=== PATIENT | female | born 1970 | race Two or more races ===

== ENCOUNTER 2016-10-25 20:37 | Emergency (ER) | payer MEDICARE, OTHER ==
[2016-10-25 20:38] VITALS: BP 131/95; PULSE 133; RESP 22; TEMP 97.6; O2SAT 92
[2016-10-25] MEDS ORDERED: methylPREDNISolone SOD SUCC 125 MG/2 ML VIAL IVP ONE (21:00)
[2016-10-25] MEDS ORDERED: LORazepam 2 MG/ML VIAL IV PUSH ONE (21:00)
--- NOTE | 2016-10-25 21:00 | PD ---
HPI Chief Complaint: shortness of breath Time Seen by Provider: 20:47 Travel History International Travel<30 days: No Contact w/Intl Traveler<30days: No Traveled to known affect area: No History of Present Illness HPI 46-year-old female complains of coughing, wheezing and shortness of breath. Patient states that the symptoms started a week ago. Patient has history of COPD and CHF. Patient has history of pulmonary problems that required right thorax surgery in the past. Patient has nebulizer machine at home and on home O2. Patient states the cough is intermittent and dry cough for the past week. Patient denies any fever chills. Patient denies any chest pain. Patient denies abdominal pain. Patient denies any nausea vomiting diarrhea. Patient has been taking prednisone 80 mg daily [facility] Social History Tobacco Use: No Allergies-Medications (Allergen,Severity, Reaction): Coded Allergies: No Known Allergies (Unverified , 10/25/16) Reported Meds & Prescriptions Reported Meds & Active Scripts Active Potassium Chloride ER (Potassium Chloride) 10 Meq Cap 10 Meq PO BID Review of Systems General / Constitutional: No: Fever Eyes: No: Visual changes HENT: No: Headaches Cardiovascular: No: Chest Pain or Discomfort Respiratory: Positive: Cough, Shortness of Breath, Wheezing Gastrointestinal: No: Abdominal Pain Genitourinary: No: Dysuria Musculoskeletal: No: Pain Skin: No Rash Neurologic: No: Weakness Psychiatric: No: Depression Endocrine: No: Polydipsia Hematologic/Lymphatic: No: Easy Bruising Physical Exam Narrative GENERAL: Well-nourished, well-developed patient. SKIN: Warm and dry. HEAD: Normocephalic. EYES: No scleral icterus. No injection or drainage. NECK: Supple, trachea midline. No JVD or lymphadenopathy. CARDIOVASCULAR: Regular rate and rhythm without murmurs, gallops, or rubs. RESPIRATORY: Patient has moderate expiratory wheezes bilaterally. No rhonchi. GASTROINTESTINAL: Abdomen soft, non-tender, nondistended. MUSCULOSKELETAL: No cyanosis, or edema. BACK: Nontender without obvious deformity. No CVA tenderness. Neurologic exam normal. Data Data Last Documented VS Vital Signs Date Time Temp Pulse Resp B/P Pulse Ox O2 Delivery O2 Flow Rate FiO2 10/25/16 21:21 125 20 97 Nasal Cannula 2 10/25/16 21:16 126/93 10/25/16 20:38 97.6 Orders Complete Blood Count With Diff (10/25/16 20:55) Comprehensive Metabolic Panel (10/25/16 20:55) B-Type Natriuretic Peptide (10/25/16 20:55) Iv Access Insert/Monitor (10/25/16 20:55) Electrocardiogram (10/25/16 20:55) Ecg Monitoring (10/25/16 20:55) Oximetry (10/25/16 20:55) Chest, Single Ap (10/25/16 20:55) Methylprednisolone So Succ Inj (Solumedr (10/25/16 21:00) Albuterol-Ipratropium Neb (Duoneb Neb) (10/25/16 21:00) Lorazepam Inj (Ativan Inj) (10/25/16 21:00) Potassium Chlor 20 Meq Premix (Kcl 20 Me (10/25/16 23:00) Potassium Chloride (Kcl) (10/25/16 23:00) Labs Laboratory Tests Test 10/25/16 22:10 Sodium Level 134 MEQ/L Potassium Level 2.9 MEQ/L Chloride Level 92 MEQ/L Carbon Dioxide Level 26.6 MEQ/L Anion Gap 15 MEQ/L Blood Urea Nitrogen 22 MG/DL Creatinine 1.01 MG/DL Estimat Glomerular Filtration 60 ML/MIN Rate Random Glucose 116 MG/DL Calcium Level 9.9 MG/DL Total Bilirubin 0.8 MG/DL Aspartate Amino Transf 13 U/L (AST/SGOT) Alanine Aminotransferase 24 U/L (ALT/SGPT) Alkaline Phosphatase 93 U/L B-Type Natriuretic Peptide 9 PG/ML Total Protein 8.9 GM/DL Albumin 4.8 GM/DL White Blood Count 21.7 TH/MM3 Red Blood Count 6.35 MIL/MM3 Hemoglobin 16.9 GM/DL Hematocrit 48.7 % Mean Corpuscular Volume 76.7 FL Mean Corpuscular Hemoglobin 26.5 PG Mean Corpuscular Hemoglobin 34.6 % Concent Red Cell Distribution Width 13.1 % Platelet Count 390 TH/MM3 Mean Platelet Volume 8.2 FL Neutrophils (%) (Auto) 54.2 % Lymphocytes (%) (Auto) 36.2 % Monocytes (%) (Auto) 8.0 % Eosinophils (%) (Auto) 1.1 % Basophils (%) (Auto) 0.5 % Neutrophils # (Auto) 11.7 TH/MM3 Lymphocytes # (Auto) 7.8 TH/MM3 Monocytes # (Auto) 1.7 TH/MM3 Eosinophils # (Auto) 0.2 TH/MM3 Basophils # (Auto) 0.1 TH/MM3 CBC Comment AUTO DIFF Differential Total Cells 100 Counted Neutrophils % (Manual) 42 % Lymphocytes % 33 % Monocytes % 1 % Eosinophils % 3 % Neutrophils # (Manual) 9.1 TH/MM3 Differential Comment FINAL DIFF MANUAL Atypical Lymphocytes 21 % Platelet Estimate NORMAL Platelet Morphology Comment NORMAL Hematology Comments [facility] Medical Decision Making Medical Screen Exam Complete: Yes Emergency Medical Condition: Yes Interpretation(s) Last Impressions Chest X-Ray 10/25/162054 Signed Impressions: Service Date/Time: Tuesday, October 25, 2016 21:16 - CONCLUSION: No acute disease. Harley Payne MD 10:59 PM. CBC WBC 21.7. Hemoglobin 16.9. Hematocrit 40.7. Normal differential. Potassium 2.9. Sodium 134. Chloride 92. BUN 22. Creatinine 1.01. Differential Diagnosis Differential diagnosis including acute exacerbation COPD, acute exacerbation CHF , bronchitis, pneumonia, PE, pneumothorax. Narrative Course 46-year-old female with coughing, wheezing, shortness of breath. History of COPD and CHF. Albuterol Atrovent unit dose treatment 3. Solu-Medrol 125 mg IV. KCl 40 mEq by mouth given. KCl 20 mEq IV given. Leukocytosis from the prednisone. Diagnosis Primary Impression: COPD with acute exacerbation Additional Impression: Hypokalemia Patient Instructions: General Instructions Additional Instructions: Albuterol treatment as directed. Follow-up with personal physician. Return if worse. Potassium as directed. Follow with personal physician potassium level checked. Med/Other Pt SpecificInfo: Prescription(s) given Scripts Potassium Chloride ER 10 Meq Cap10 Meq PO BID #14 CAP Ref 0 Prov:Lele Hernandez MD 10/26/16 Disposition: 01 DISCHARGE HOME Condition: Stable Lele Hernandez MD Oct 25, 2016 21:00
[2016-10-25] MEDS: RESP: ALBUTEROL 2.5 MG/IPRATROPIUM 0.5 MG NEB (SCH) INH ×3 (21:07→21:12)
[2016-10-25 21:16] VITALS: BP 126/93; PULSE 130; RESP 18; O2SAT 92
[2016-10-25 21:21] VITALS: PULSE 125; RESP 20; O2SAT 97
--- NOTE | 2016-10-25 21:34 | RADRPT ---
EXAM DATE/TIME: 10/25/2016 21:16 [facility] COMPARISON: No previous studies available for comparison. INDICATIONS : Shortness of breath. MEDICAL HISTORY : None. SURGICAL HISTORY : None. ENCOUNTER: Initial ACUITY: 1 day PAIN SCORE: 0/10 LOCATION: Bilateral chest FINDINGS: A single view of the chest demonstrates the lungs to be symmetrically aerated without evidence of mas s, infiltrate or effusion. The cardiomediastinal contours are unremarkable. Osseous structures are intact. CONCLUSION: No acute disease. Harley Payne MD on October 25, 2016 at 21:32 Board Certified Radiologist. This report was verified electronically.
[2016-10-25 22:39] LABS: AUTOMATED NEUTROPHIL # 11.7 TH/MM3 (1.8-7.7); BASOPHIL # 0.1 TH/MM3 (0-0.2); BASOPHIL % 0.5 % (0.0-2.0); EOSINOPHIL # 0.2 TH/MM3 (0-0.4); EOSINOPHIL % 1.1 % (0.0-4.0); HEMATOCRIT 48.7 % (35.0-46.0); HEMO FLAGS AUTO DIFF; LYMPH % 36.2 % (9.0-44.0); LYMPHOCYTE # 7.8 TH/MM3 (1.0-4.8); MEAN CELL VOLUME 76.7 FL (80.0-100.0); MEAN CORPUSCULAR HEMOGLOBIN 26.5 PG (27.0-34.0); MEAN CORPUSCULAR HGB CONC 34.6 % (32.0-36.0); NEUT % 54.2 % (16.0-70.0); PLATELET COUNT 390 TH/MM3 (150-450); RED BLOOD COUNT 6.35 MIL/MM3 (4.00-5.30); RED CELL DISTRIBUTION WIDTH 13.1 % (11.6-17.2); WHITE BLOOD COUNT 21.7 TH/MM3 (4.0-11.0)
[2016-10-25 22:50] LABS: ALKALINE PHOSPHATASE 93 U/L (45-117); ALT (GPT) 24 U/L (10-53); ANION GAP 15 MEQ/L (5-15); AST (GOT) 13 U/L (15-37); BICARBONATE 26.6 MEQ/L (21.0-32.0); CHLORIDE 92 MEQ/L (98-107); GLOMERULAR FILTRATION RATE 60 ML/MIN (>89); SODIUM (NA) 134 MEQ/L (136-145); TOTAL BILIRUBIN ADULT 0.8 MG/DL (0.2-1.0)
[2016-10-25 22:52] LABS: BLOOD UREA NITROGEN 22 MG/DL (7-18)
[2016-10-25 22:57] LABS: POTASSIUM 2.9 MEQ/L (3.5-5.1)
[2016-10-25] MEDS ORDERED: POTASSIUM CHLOR 20 MEQ PREMIX 100 ML IV ONE (23:00)
[2016-10-25] MEDS ORDERED: POTASSIUM CHLORIDE 20 MEQ CONTROLLED RELEASE TAB PO ONE (23:00)
[2016-10-26] MEDS ORDERED: POTA10CA PO (00:01)
[2016-10-26 00:31] LABS: ATYPICAL LYMPHOCYTES 21 % (0-0); EOSINOPHILS 3 % (0-4); NEUTROPHIL # MANUAL DIFF 9.1 TH/MM3 (1.8-7.7); POLYS (SEG NEUTROPHILS) 42 % (16-70); WBC DIFF SAMPLE 100
[2016-10-26 00:32] LABS: PLATELET ESTIMATE SMEAR NORMAL (NORMAL); PLATELET MORPHOLOGY NORMAL (NORMAL); SCAN/DIFF FINAL DIFF MANUAL
--- NOTE | 2016-10-26 12:34 | EKG ---
Date Performed: 10/25/2016 Time Performed: 21:55:29 PTAGE: 46 years EKG: SINUS TACHYCARDIA MODERATE ST DEPRESSION ABNORMAL ECG NO PREVIOUS TRACING DOCTOR: Roberto Carlos Donohue Interpretating Date/Time 10/26/2016 12:30:36
== END 2016-10-26 00:26 | disposition home or self-care (01) ==
LOC: NEPC 20:37
DX: J44.1 Chronic obstructive pulmonary disease with (acute) exacerbation (principal); R94.31 Abnormal electrocardiogram [ECG] [EKG]
CPT/HCPCS: 71010; 80053; 83880; 85007; 85027; 93005; 94640; 94664; 96374; 96375; 99285; J2060; J2930

== ENCOUNTER 2017-11-15 16:15 | Observation (INO) | payer MEDICARE ==
[~2017-11-15 16:15] MED LIST: POTA10CA PO
[2017-11-15 16:29] VITALS: BP 144/67; PULSE 89; RESP 16; TEMP 97.9; O2SAT 98
--- NOTE | 2017-11-15 17:06 | RADRPT ---
EXAM DATE/TIME: 11/15/2017 16:57 [facility] COMPARISON: CHEST SINGLE AP, October 25, 2016, 21:16. INDICATIONS : Shortness of breath. MEDICAL HISTORY : Chronic obstructive pulmonary disease. SURGICAL HISTORY : None. ENCOUNTER: Initial ACUITY: 1 day PAIN SCORE: 0/10 LOCATION: Bilateral chest FINDINGS: PA and lateral views of the chest demonstrate the lungs to be symmetrically aerated without evidence of mass, infiltrate or effusion. The cardiomediastinal contours are unremarkable. Osseous structure s are intact. CONCLUSION: 1. No acute cardiopulmonary findings. Stable compared to prior dated 10/25/16. Dwaine Hubbard MD on November 15, 2017 at 17:03 Board Certified Radiologist. This report was verified electronically.
[2017-11-15 18:09] LABS: AUTOMATED NEUTROPHIL # 7.9 TH/MM3 (1.8-7.7); BASOPHIL # 0.1 TH/MM3 (0-0.2); BASOPHIL % 0.9 % (0.0-2.0); EOSINOPHIL # 1.1 TH/MM3 (0-0.4); EOSINOPHIL % 7.8 % (0.0-4.0); HEMATOCRIT 41.6 % (35.0-46.0); HEMOGLOBIN 13.6 GM/DL (11.6-15.3); LYMPH % 28.6 % (9.0-44.0); LYMPHOCYTE # 3.9 TH/MM3 (1.0-4.8); MEAN CORPUSCULAR HEMOGLOBIN 26.5 PG (27.0-34.0); MEAN CORPUSCULAR HGB CONC 32.7 % (32.0-36.0); MEAN PLATELET VOLUME 8.1 FL (7.0-11.0); MONO % 5.5 % (0.0-8.0); MONOCYTE # 0.8 TH/MM3 (0-0.9); NEUT % 57.2 % (16.0-70.0); PLATELET COUNT 306 TH/MM3 (150-450); RED BLOOD COUNT 5.14 MIL/MM3 (4.00-5.30); RED CELL DISTRIBUTION WIDTH 13.5 % (11.6-17.2); WHITE BLOOD COUNT 13.8 TH/MM3 (4.0-11.0)
--- NOTE | 2017-11-15 18:14 | PD ---
HPI Chief Complaint: Respiratory Symptoms Time Seen by Provider: 17:48 Travel History International Travel<30 days: No Contact w/Intl Traveler<30days: No Traveled to known affect area: No History of Present Illness HPI This patient complains of shortness of breath. She has chronic lung disease. She is on oxygen and nebulizers at home. She has COPD and pulmonary fibrosis per her report. She comes in short of breath and wheezing. She did not take any steroid today. Symptom severity is moderately severe. No alleviating factors. No exacerbating factors. Denies chest pain or fever PFSH Past Medical History Congestive Heart Failure: Yes Diminished Hearing: No Respiratory: Yes Ectopic : Yes Past Surgical History Other Surgery: Yes (OPEN HEART SX AT 21) Social History Alcohol Use: No Tobacco Use: No Substance Use: No Allergies-Medications (Allergen,Severity, Reaction): Coded Allergies: No Known Allergies (Unverified , 10/25/16) Reported Meds & Prescriptions Reported Meds & Active Scripts Active Potassium Chloride ER (Potassium Chloride) 10 Meq Cap 10 Meq PO BID Review of Systems General / Constitutional: No: Fever Eyes: No: Visual changes HENT: No: Headaches Cardiovascular: No: Chest Pain or Discomfort Respiratory: Positive: Shortness of Breath, Wheezing Gastrointestinal: No: Abdominal Pain Genitourinary: No: Dysuria Musculoskeletal: No: Pain Skin: No Rash Neurologic: No: Weakness Psychiatric: No: Depression Endocrine: No: Polydipsia Hematologic/Lymphatic: No: Easy Bruising Physical Exam Narrative GENERAL: Well-nourished, well-developed patient with wheezing and dyspnea . SKIN: Focused skin assessment reveals no rash and nodules. Skin is Warm and dry. HEAD: Atraumatic. Normocephalic. EYES: Pupils equal and round. No scleral icterus. No injection or drainage. ENT: No nasal bleeding or discharge. Mucous membranes pink and moist. NECK: Trachea midline. No JVD. CARDIOVASCULAR: Regular rate and rhythm. No murmur appreciated. RESPIRATORY: No accessory muscle use. Diffuse expiratory wheezing. Breath sounds equal bilaterally. GASTROINTESTINAL: Abdomen soft, non-tender, nondistended. Hepatic and splenic margins not palpable. MUSCULOSKELETAL: No obvious deformities. No clubbing. No cyanosis. No edema. NEUROLOGICAL: Awake and alert. No obvious cranial nerve deficits. Motor grossly within normal limits. Normal speech. PSYCHIATRIC: Appropriate mood and affect; insight and judgment normal. Data Data Last Documented VS Vital Signs Date Time Temp Pulse Resp B/P (MAP) Pulse Ox O2 Delivery O2 Flow Rate FiO2 11/15/17 18:24 91 99 Nasal Cannula 2.00 11/15/17 16:29 97.9 16 144/67 (92) Orders Orders Complete Blood Count With Diff (11/15/17 16:31) Comprehensive Metabolic Panel (11/15/17 16:31) B-Type Natriuretic Peptide (11/15/17 16:31) Act Partial Throm Time (Ptt) (11/15/17 16:31) Prothrombin Time / Inr (Pt) (11/15/17 16:31) Urinalysis - C+S If Indicated (11/15/17 16:31) Influenzae A/B Antigen (11/15/17 16:31) Electrocardiogram (11/15/17 16:31) Chest, Pa & Lat (11/15/17 16:31) Iv Access Insert/Monitor (11/15/17 18:07) Sodium Chloride 0.9% Flush (Ns Flush) (11/15/17 18:15) Methylprednisolone So Succ Inj (Solumedr (11/15/17 18:15) Albuterol-Ipratropium Neb (Duoneb Neb) (11/15/17 18:15) Labs Laboratory Tests Test 11/15/17 17:21 White Blood Count 13.8 TH/MM3 Red Blood Count 5.14 MIL/MM3 Hemoglobin 13.6 GM/DL Hematocrit 41.6 % Mean Corpuscular Volume 81.0 FL Mean Corpuscular Hemoglobin 26.5 PG Mean Corpuscular Hemoglobin Concent 32.7 % Red Cell Distribution Width 13.5 % Platelet Count 306 TH/MM3 Mean Platelet Volume 8.1 FL Neutrophils (%) (Auto) 57.2 % Lymphocytes (%) (Auto) 28.6 % Monocytes (%) (Auto) 5.5 % Eosinophils (%) (Auto) 7.8 % Basophils (%) (Auto) 0.9 % Neutrophils # (Auto) 7.9 TH/MM3 Lymphocytes # (Auto) 3.9 TH/MM3 Monocytes # (Auto) 0.8 TH/MM3 Eosinophils # (Auto) 1.1 TH/MM3 Basophils # (Auto) 0.1 TH/MM3 CBC Comment DIFF FINAL Differential Comment Prothrombin Time 10.1 SEC Prothromb Time International Ratio 1.0 RATIO Activated Partial Thromboplast Time 24.4 SEC Blood Urea Nitrogen 7 MG/DL Creatinine 0.65 MG/DL Random Glucose 92 MG/DL Total Protein 7.4 GM/DL Albumin 3.8 GM/DL Calcium Level 8.7 MG/DL Alkaline Phosphatase 69 U/L Aspartate Amino Transf (AST/SGOT) 15 U/L Alanine Aminotransferase (ALT/SGPT) 20 U/L Total Bilirubin 0.4 MG/DL Sodium Level 139 MEQ/L Potassium Level 3.6 MEQ/L Chloride Level 106 MEQ/L Carbon Dioxide Level 25.7 MEQ/L Anion Gap 7 MEQ/L Estimat Glomerular Filtration Rate 99 ML/MIN B-Type Natriuretic Peptide 45 PG/ML MDM Medical Decision Making Medical Screen Exam Complete: Yes Emergency Medical Condition: Yes Medical Record Reviewed: Yes Differential Diagnosis Differential diagnosis includes COPD, asthma, pneumonia, bronchitis, CHF Narrative Course I have reviewed the patient's electronic medical record. I reviewed her chest x-ray which is negative I gave her series of 3 nebulizer treatments and IV Solu-Medrol Her EKG shows no acute ST elevation Labs sent Influenza swab is negative I will reassess her after nebulizer treatments Saturation 99% on nasal cannula oxygen CBC and metabolic profiles are normal other than mild leukocytosis but she takes steroids chronically On recheck though she is still short of breath and labored and wheezing Saturations remained decent but she is too short of breath to be safely discharged I placed a call to the hospitalist to discuss Diagnosis Primary Impression: COPD with acute exacerbation Additional Impression: Pulmonary fibrosis Admitting Information Admitting Physician Requests: Observation Latrell Middleton MD Nov 15, 2017 18:14
[2017-11-15] MEDS ORDERED: methylPREDNISolone SOD SUCC 125 MG/2 ML VIAL IV PUSH ONE (18:15)
[2017-11-15] MEDS ORDERED: SODIUM CHLORIDE 0.9% FLUSH 10 ML FLUSH IVF PRN (18:15)
[2017-11-15 18:16] LABS: PROTHROMBIN TIME - PATIENT 10.1 SEC (9.8-11.6)
[2017-11-15] MEDS: RESP: ALBUTEROL 2.5 MG/IPRATROPIUM 0.5 MG NEB (SCH) INH ×2 (18:18→20:05)
[2017-11-15 18:22] LABS: ALBUMIN 3.8 GM/DL (3.4-5.0); ALT (GPT) 20 U/L (10-53); AST (GOT) 15 U/L (15-37); BICARBONATE 25.7 MEQ/L (21.0-32.0); BLOOD UREA NITROGEN 7 MG/DL (7-18); CALCIUM 8.7 MG/DL (8.5-10.1); CHLORIDE 106 MEQ/L (98-107); CREATININE 0.65 MG/DL (0.50-1.00); GLOMERULAR FILTRATION RATE 99 ML/MIN (>89); GLUCOSE,RANDOM 92 MG/DL (74-106); SODIUM (NA) 139 MEQ/L (136-145)
[2017-11-15 18:25] LABS: ALKALINE PHOSPHATASE 69 U/L (45-117); TOTAL BILIRUBIN ADULT 0.4 MG/DL (0.2-1.0); TOTAL PROTEIN 7.4 GM/DL (6.4-8.2)
[2017-11-15] MEDS ORDERED: SODIUM CHLORIDE 0.9% FLUSH 10 ML FLUSH IV FLUSH PRN (18:45)
[2017-11-15] MEDS ORDERED: RESP: ALBUTEROL 2.5 MG/3 ML NEB (PRN) INH (18:45)
[2017-11-15] MEDS ORDERED: ALBU.5I NEB (19:31)
[2017-11-15] MEDS ORDERED: DIGO0.25 PO (19:31)
[2017-11-15] MEDS ORDERED: BUME1TAB PO (19:31)
[2017-11-15] MEDS ORDERED: FURO1TAB60 PO (19:31)
[2017-11-15] MEDS ORDERED: HYDR25TA5 PO (19:31)
[2017-11-15] MEDS ORDERED: ADVA100A INH (19:31)
[2017-11-15] MEDS ORDERED: SYMB80AE INH (19:31)
[2017-11-15] MEDS ORDERED: PRED20 PO (19:31)
[2017-11-15] MEDS ORDERED: ALPR.5 PO (19:31)
[2017-11-15 19:32] VITALS: BP 137/63; PULSE 95; RESP 18; O2SAT 97
[2017-11-15] MEDS: SODIUM CHLORIDE 0.9% FLUSH 10 ML FLUSH IV FLUSH SCH (21:00)
[2017-11-15] MEDS ORDERED: BUDESONIDE-FORMOTEROL 80/4.5 MCG INHALER INH SCH (22:45)
[2017-11-15] MEDS ORDERED: ALPRAZolam 0.5 MG TAB PO PRN (22:45)
[2017-11-15] MEDS ORDERED: DIGOXIN 0.25 MG TAB PO SCH (22:45)
--- NOTE | 2017-11-15 22:52 | HHI.HP ---
HPI Service [facility] Hospitalists . Primary Care Physician Conor Bee D.O. . Admission Diagnosis acute exacerbation of chronic COPD . Diagnoses: (1) COPD with acute exacerbation (2) Pulmonary fibrosis Chief Complaint: Wheezing and shortness of breath Travel History International Travel<30 Days: No Contact w/Intl Traveler <30 Da: No Traveled to Known Affected Are: No History of Present Illness Mrs. Aguilar is a 47-year-old female with a history of COPD, pulmonary fibrosis, anxiety, congestive heart failure, and atrial septal defect status post repair at age 21 who presented to the emergency room complaining of severe shortness of breath and wheezing for the past few days. She was found to have COPD exacerbation in the emergency room and was admitted to the hospitalist service for continued observation and medical management. Patient is seen in the CDU. She reports progressively worsening shortness of breath and wheezing over the past few days. Symptoms persisted despite home treatment with prednisone and nebulizers. The symptoms were severe. In the emergency room, symptoms such as wheezing persisted despite treatment with nebulizers and IV steroids and she was subsequently admitted for observation and treatment. Denies fevers but reports feeling cold and hot alternately. She states she's been on amoxicillin until a couple of days ago when her PCP put her on Cipro for her SOB/wheezing. She's taken Cipro for two days. She reports nausea, denies diarrhea, abdominal pain, black or tarry stools, or chest pain. Review of Systems Except as stated in HPI: all other systems reviewed are Neg Past Family Social History Past Medical History COPD Pulmonary fibrosis Congestive heart failure Atrial septal defect status post repair at age 21 Anxiety . Past Surgical History Atrial septal defect repair at age 21 Surgery secondary to ectopic . Reported Medications Reported Meds & Active Scripts Active Potassium Chloride ER (Potassium Chloride) 10 Meq Cap 10 Meq PO BID Reported Bumetanide 1 Mg Tab 1 Mg PO DAILY Symbicort Inh (Budesonide/Formoterol Fumarate) 80-4.5 Mcg/Act Aero 2 Puff INH Q12HR Advair Diskus Inh (Fluticasone-Salmeterol Inh) 100-50 Mcg/Blist Aer 1 Puff INH BID Rinse mouth after use. Albuterol Neb (Albuterol Sulfate) 2.5 Mg/0.5 Ml Neb 2.5 Mg NEB TID NEB PRN Note: The Albuterol Sulfate Inhalation Solution is concentrated and must be diluted. Read complete instructions carefully before using. Xanax (Alprazolam) 0.5 Mg Tab 0.5 Mg PO TID PRN Digoxin 0.25 Mg Tab 0.25 Mg PO DAILY Hydrochlorothiazide 25 Mg Tab 25 Mg PO DAILY Lasix (Furosemide) 40 Mg Tab 40 Mg PO DAILY Prednisone 20 Mg Tab 20 Mg PO TID . Allergies: Coded Allergies: No Known Allergies (Unverified Allergy, Unknown, 11/15/17) Family History Paternal grandmother with congestive heart failure Maternal aunt with congestive heart failure . Social History Tobacco: Denies Alcohol: Denies . Physical Exam Vital Signs Vital Signs Date Time Temp Pulse Resp B/P (MAP) Pulse Ox O2 Delivery O2 Flow Rate FiO2 11/15/17 21:05 11/15/17 19:32 95 18 137/63 (87) 97 Nasal Cannula 4.00 11/15/17 18:24 91 99 Nasal Cannula 2.00 11/15/17 16:29 97.9 89 16 144/67 (92) 98 Physical Exam CONSTITUTIONAL: This is an anxious female patient who appears well-groomed. INTEGUMENTARY: No rashes. Cool and dry. HEAD: Atraumatic. Normocephalic. EYES: No scleral icterus. No injection or drainage. ENT: Nose without bleeding, purulent drainage. NECK: Trachea midline. No JVD or lymphadenopathy. CARDIOVASCULAR: Regular rate and rhythm without murmurs, gallops, or rubs. RESPIRATORY: Expiratory wheezing auscultated throughout lung nguyen. Breath sounds equal bilaterally. GASTROINTESTINAL: Abdomen soft, non-tender, nondistended. No guarding. MUSCULOSKELETAL: Extremities without clubbing, cyanosis, or edema. No calf tenderness. NEUROLOGICAL: Awake and alert. Motor and sensory grossly within normal limits. Normal speech. . Laboratory Laboratory Tests Test 11/15/17 17:21 White Blood Count 13.8 Red Blood Count 5.14 Hemoglobin 13.6 Hematocrit 41.6 Mean Corpuscular Volume 81.0 Mean Corpuscular Hemoglobin 26.5 Mean Corpuscular Hemoglobin Concent 32.7 Red Cell Distribution Width 13.5 Platelet Count 306 Mean Platelet Volume 8.1 Neutrophils (%) (Auto) 57.2 Lymphocytes (%) (Auto) 28.6 Monocytes (%) (Auto) 5.5 Eosinophils (%) (Auto) 7.8 Basophils (%) (Auto) 0.9 Neutrophils # (Auto) 7.9 Lymphocytes # (Auto) 3.9 Monocytes # (Auto) 0.8 Eosinophils # (Auto) 1.1 Basophils # (Auto) 0.1 CBC Comment DIFF FINAL Differential Comment Prothrombin Time 10.1 Prothromb Time International Ratio 1.0 Activated Partial Thromboplast Time 24.4 Blood Urea Nitrogen 7 Creatinine 0.65 Random Glucose 92 Total Protein 7.4 Albumin 3.8 Calcium Level 8.7 Alkaline Phosphatase 69 Aspartate Amino Transf (AST/SGOT) 15 Alanine Aminotransferase (ALT/SGPT) 20 Total Bilirubin 0.4 Sodium Level 139 Potassium Level 3.6 Chloride Level 106 Carbon Dioxide Level 25.7 Anion Gap 7 Estimat Glomerular Filtration Rate 99 B-Type Natriuretic Peptide 45 Date/Time Source Procedure Growth Status 11/15/17 17:21 Nasal Washing Influenza Types A,B Antigen (TYREL) - Final NEGATIVE FOR FLU A AND B ANTIGEN.... Complete Result Diagram: 11/15/17 1721 11/15/17 1721 Imaging Last Impressions Chest X-Ray 11/15/17 1631 Signed Impressions: Service Date/Time: Wednesday, November 15, 2017 16:57 - CONCLUSION: 1. No acute cardiopulmonary findings. Stable compared to prior dated 10/25/16. Dwaine Hubbard MD . Caprini VTE Risk Assessment Caprini VTE Risk Assessment: Mod/High Risk (score >= 2) Caprini Risk Assessment Model Point Value = 1 Point Value = 2 Point Value = 3 Point Value = 5 Age 41-60 Minor surgery BMI > 25 kg/m2 Swollen legs Varicose veins or History of unexplained or recurrent spontaneous Oral contraceptives or hormone replacement Sepsis (< 1 month) Serious lung disease, including pneumonia (< 1 month) Abnormal pulmonary function Acute myocardial infarction Congestive heart failure (< 1 month) History of inflammatory bowel disease Medical patient at bed rest Age 61-74 Arthroscopic surgery Major open surgery (> 45 min) Laparoscopic surgery (> 45 min) Malignancy Confined to bed (> 72 hours) Immobilizing plaster cast Central venous access Age >= 75 History of VTE Family history of VTE Factor V Leiden Prothrombin [id number] Lupus anticoagulant Anticardiolipin antibodies Elevated serum homocysteine Heparin-induced thrombocytopenia Other congenital or acquired thrombophilia Stroke (< 1 month) Elective arthroplasty Hip, pelvis, or leg fracture Acute spinal cord injury (< 1 month) Prophylaxis Regimen Total Risk Factor Score Risk Level Prophylaxis Regimen 0-1 Low Early ambulation 2 Moderate Order ONE of the following: *Sequential Compression Device (SCD) *Heparin 5000 units SQ BID 3-4 Higher Order ONE of the following medications: *Heparin 5000 units SQ TID *Enoxaparin/Lovenox 40 mg SQ daily (WT < 150 kg, CrCl > 30 mL/min) *Enoxaparin/Lovenox 30 mg SQ daily (WT < 150 kg, CrCl > 10-29 mL/min) *Enoxaparin/Lovenox 30 mg SQ BID (WT < 150 kg, CrCl > 30 mL/min) AND/OR *Sequential Compression Device (SCD) 5 or more Highest Order ONE of the following medications: *Heparin 5000 units SQ TID (Preferred with Epidurals) *Enoxaparin/Lovenox 40 mg SQ daily (WT < 150 kg, CrCl > 30 mL/min) *Enoxaparin/Lovenox 30 mg SQ daily (WT < 150 kg, CrCl > 10-29 mL/min) *Enoxaparin/Lovenox 30 mg SQ BID (WT < 150 kg, CrCl > 30 mL/min) AND *Sequential Compression Device (SCD) Assessment and Plan Assessment and Plan Mrs. Aguilar is a 47-year-old female with a history of COPD, pulmonary fibrosis, anxiety, congestive heart failure, and atrial septal defect status post repair at age 21 who presented to the emergency room complaining of severe shortness of breath and wheezing for the past few days. She was found to have COPD exacerbation in the emergency room and was admitted to the hospitalist service for continued observation and medical management. COPD exacerbation -Albuterol 2.5 mg every 2 hours as needed shortness of breath and duo nebulizers 4 times daily scheduled -Resume home Symbicort -Supplemental oxygen titrated to maintain oxygen saturation greater than 92% -Patient uses 2 L nasal cannula at night for history of nocturnal hypoxia -will order to continue at least 2 L at night -Patient is requesting PFT - I have advised that this is typically an outpatient procedure -Hold home prednisone and give Solu-Medrol 40 mg IV every 6 hours -Antibiotics: Azithromycin 500 mg daily and ceftriaxone 1 g daily IV -Monitor her pulse oximetry -negative testing for flu a and b Congestive heart failure, history of -Continue home Maxide, Lasix, and digoxin -BNP was 47 and chest x-ray showed no acute cardiopulmonary findings -Patient reports EF of 40% about 6 years ago but does not follow with a local manager business management as she feels she was only able to improve after no longer seeing a manager business management and following with her primary care physician -Continuous cardiac telemetry to monitor for arrhythmia Anxiety -Patient acutely anxious at the time of my visit -Ativan 0.5 mg IV 1 dose ordered as patient is also nauseated -Reglan also ordered for patient for nausea as this is work for her in the past -Restart home Xanax 0.5 mg 3 times daily as needed anxiety Leukocytosis likely secondary to chronic steroid use - WBC 13.8 on admission - recheck CBC in a.m. - follow results DVT prophylaxis -Heparin 5000 units subq q8h Discussed Condition With Dr. Powell, patient, and RN Camryn Armendariz Nov 15, 2017 22:52
[2017-11-15] MEDS ORDERED: LORazepam 2 MG/ML VIAL IV PUSH ONE (23:00)
[2017-11-15] MEDS ORDERED: METOCLOPRAMIDE HCL 10 MG/2 ML VIAL IV PUSH PRN (23:00)
[2017-11-15] MEDS ORDERED: ONDANSETRON HCL 4 MG/2 ML VIAL IV PUSH PRN (23:00)
[2017-11-15] MEDS ORDERED: PANTOPRAZOLE SOD 40 MG DELAYED RELEASE TAB PO ONE (23:00)
[2017-11-15] MEDS ORDERED: ONDANSETRON HCL 4 MG/2 ML VIAL IV PUSH ONE (23:00)
[2017-11-15 23:01] VITALS: BP 133/83; PULSE 97; TEMP 98.9; O2SAT 98
[2017-11-15] MEDS ORDERED: METOCLOPRAMIDE HCL 10 MG/2 ML VIAL IV PUSH ONE (23:15)
[2017-11-15] MEDS ORDERED: TRIAMTERENE/HCTZ 37.5 MG/25 MG TAB PO SCH (23:15)
[2017-11-15] MEDS: POTASSIUM CHLORIDE 10 MEQ CAP PO SCH (23:30)
[2017-11-15] MEDS: methylPREDNISolone SOD SUCC 40 MG/1 ML VIAL IV PUSH SCH (23:41)
[2017-11-16] MEDS ORDERED: cefTRIAXone INJ 1,000 MG in SODIUM CHLORIDE 0.9% INJ 100 ML IV SCH ×2
[2017-11-16] MEDS ORDERED: AZITHROMYCIN INJ 500 MG in SODIUM CHLOR 0.9% 250 ML INJ 250 ML IV SCH (01:00)
[2017-11-16 04:15] VITALS: PULSE 103
[2017-11-16] MEDS ORDERED: HEPARIN SODIUM - SQ 10,000 UNITS/ML VIAL SQ SCH (06:00)
[2017-11-16] MEDS: methylPREDNISolone SOD SUCC 40 MG/1 ML VIAL IV PUSH SCH (06:16)
[2017-11-16 07:00] VITALS: PULSE 78
[2017-11-16] MEDS: RESP: ALBUTEROL 2.5 MG/IPRATROPIUM 0.5 MG NEB (SCH) INH (07:13)
[2017-11-16 07:31] LABS: AUTOMATED NEUTROPHIL # 12.2 TH/MM3 (1.8-7.7); BASOPHIL % 0.1 % (0.0-2.0); HEMOGLOBIN 12.9 GM/DL (11.6-15.3); LYMPHOCYTE # 1.2 TH/MM3 (1.0-4.8); MEAN CORPUSCULAR HEMOGLOBIN 26.4 PG (27.0-34.0); MEAN PLATELET VOLUME 8.2 FL (7.0-11.0); MONO % 0.9 % (0.0-8.0); MONOCYTE # 0.1 TH/MM3 (0-0.9); PLATELET COUNT 327 TH/MM3 (150-450); RED BLOOD COUNT 4.88 MIL/MM3 (4.00-5.30); RED CELL DISTRIBUTION WIDTH 13.2 % (11.6-17.2); WHITE BLOOD COUNT 13.6 TH/MM3 (4.0-11.0)
[2017-11-16 08:15] VITALS: BP 126/73; PULSE 89; RESP 16; TEMP 97.9; O2SAT 98
[2017-11-16] MEDS ORDERED: FUROSEMIDE 40 MG TAB PO SCH (09:00)
[2017-11-16] MEDS ORDERED: PANTOPRAZOLE SOD 40 MG DELAYED RELEASE TAB PO SCH (09:00)
--- NOTE | 2017-11-16 09:01 | HHI.PR ---
Subjective Remarks Patient says she wants to go home. Says she was treated with antibiotics before she just finished a course of antibiotics. Patient states she feels much better. No much wheezing. No nausea vomiting or diarrhea or constipation. Says she has an appointment tomorrow with stummel selector. Denies chest pain or shortness of breath at this time. Objective Vitals Vital Signs Date Time Temp Pulse Resp B/P (MAP) Pulse Ox O2 Delivery O2 Flow Rate FiO2 11/16/17 08:15 97.9 89 16 126/73 (90) 98 11/16/17 07:17 Nasal Cannula 2.00 11/16/17 04:15 103 11/15/17 23:01 98.9 97 133/83 (100) 98 11/15/17 21:05 11/15/17 19:32 95 18 137/63 (87) 97 Nasal Cannula 4.00 11/15/17 18:24 91 99 Nasal Cannula 2.00 11/15/17 16:29 97.9 89 16 144/67 (92) 98 Result Diagram: 11/16/17 0615 11/15/17 1721 Imaging Last Impressions Chest X-Ray 11/15/17 1631 Signed Impressions: Service Date/Time: Wednesday, November 15, 2017 16:57 - CONCLUSION: 1. No acute cardiopulmonary findings. Stable compared to prior dated 10/25/16. Dwaine Hubbard MD Objective Remarks GENERAL APPEARANCE: This is an anxious female patient who appears well-groomed. SKIN: No rashes. Cool and dry. CARDIOVASCULAR: Regular rate and rhythm without murmurs, gallops, or rubs. RESPIRATORY: Expiratory wheezing auscultated throughout lung nguyen. Breath sounds equal bilaterally. GASTROINTESTINAL: Abdomen soft, non-tender, nondistended. No guarding. MUSCULOSKELETAL: Extremities without clubbing, cyanosis, or edema. No calf tenderness. NEUROLOGICAL: Awake and alert. Motor and sensory grossly within normal limits. Normal speech. A/P Problem List: (1) COPD with acute exacerbation ICD Code: J44.1 - Chronic obstructive pulmonary disease with (acute) exacerbation Status: Acute (2) Pulmonary fibrosis ICD Code: J84.10 - Pulmonary fibrosis, unspecified Status: Acute Assessment and Plan Mrs. Aguilar is a 47-year-old female with a history of COPD, pulmonary fibrosis, anxiety, congestive heart failure, and atrial septal defect status post repair at age 21 who presented to the emergency room complaining of severe shortness of breath and wheezing for the past few days. She was found to have COPD exacerbation in the emergency room and was admitted to the hospitalist service for continued observation and medical management. COPD exacerbation -Albuterol 2.5 mg every 2 hours as needed shortness of breath and duo nebulizers 4 times daily scheduled -Resume home Symbicort -Supplemental oxygen titrated to maintain oxygen saturation greater than 92% -Patient uses 2 L nasal cannula at night for history of nocturnal hypoxia -will order to continue at least 2 L at night -Patient is requesting PFT - I have advised that this is typically an outpatient procedure -Hold home prednisone and give Solu-Medrol 40 mg IV every 6 hours -Antibiotics: Azithromycin 500 mg daily and ceftriaxone 1 g daily IV -Monitor her pulse oximetry -negative testing for flu a and b Congestive heart failure, history of -Continue home Maxide, Lasix, and digoxin -BNP was 47 and chest x-ray showed no acute cardiopulmonary findings -Patient reports EF of 40% about 6 years ago but does not follow with a local insurance processing clerk as she feels she was only able to improve after no longer seeing a insurance processing clerk and following with her primary care physician -Continuous cardiac telemetry to monitor for arrhythmia Anxiety -Patient acutely anxious at the time of my visit -Ativan 0.5 mg IV 1 dose ordered as patient is also nauseated -Reglan also ordered for patient for nausea as this is work for her in the past -Restart home Xanax 0.5 mg 3 times daily as needed anxiety Leukocytosis likely secondary to chronic steroid use - WBC 13.8 on admission - recheck CBC in a.m. - follow results DVT prophylaxis -Heparin 5000 units subq q8h Discussed Condition With patient, nurse Improved. Discharged home in stable condition to follow-up with PCP and consultants. Patient says she has an appointment tomorrow with pulmonology. Patient wants to go home. Monica Gunter MD Nov 16, 2017 09:01
[2017-11-16] MEDS: POTASSIUM CHLORIDE 10 MEQ CAP PO SCH (09:31)
[2017-11-16] MEDS: SODIUM CHLORIDE 0.9% FLUSH 10 ML FLUSH IV FLUSH SCH (09:33)
--- NOTE | 2017-11-16 11:22 | HHI.DS ---
Discharge Summary Admission Date Nov 15, 2017 at 18:55 Discharge Date: Nov 16, 2017 Admitting Diagnosis acute exacerbation of chronic COPD . (1) COPD with acute exacerbation ICD Code: J44.1 - Chronic obstructive pulmonary disease with (acute) exacerbation Status: Acute (2) Pulmonary fibrosis ICD Code: J84.10 - Pulmonary fibrosis, unspecified Status: Acute Procedures No procedures Brief History - From Admission Mrs. Aguilar is a 47-year-old female with a history of COPD, pulmonary fibrosis, anxiety, congestive heart failure, and atrial septal defect status post repair at age 21 who presented to the emergency room complaining of severe shortness of breath and wheezing for the past few days. She was found to have COPD exacerbation in the emergency room and was admitted to the hospitalist service for continued observation and medical management. Patient is seen in the CDU. She reports progressively worsening shortness of breath and wheezing over the past few days. Symptoms persisted despite home treatment with prednisone and nebulizers. The symptoms were severe. In the emergency room, symptoms such as wheezing persisted despite treatment with nebulizers and IV steroids and she was subsequently admitted for observation and treatment. Denies fevers but reports feeling cold and hot alternately. She states she's been on amoxicillin until a couple of days ago when her PCP put her on Cipro for her SOB/wheezing. She's taken Cipro for two days. She reports nausea, denies diarrhea, abdominal pain, black or tarry stools, or chest pain. CBC/BMP: 11/16/17 0615 11/15/17 1721 Significant Findings Laboratory Tests Test 11/15/17 17:21 11/16/17 06:15 White Blood Count 13.8 TH/MM3 (4.0-11.0) 13.6 TH/MM3 (4.0-11.0) Mean Corpuscular Hemoglobin 26.5 PG (27.0-34.0) 26.4 PG (27.0-34.0) Eosinophils (%) (Auto) 7.8 % (0.0-4.0) Neutrophils # (Auto) 7.9 TH/MM3 (1.8-7.7) 12.2 TH/MM3 (1.8-7.7) Eosinophils # (Auto) 1.1 TH/MM3 (0-0.4) Neutrophils (%) (Auto) 90.0 % (16.0-70.0) Imaging Last Impressions Chest X-Ray 11/15/17 1631 Signed Impressions: Service Date/Time: Wednesday, November 15, 2017 16:57 - CONCLUSION: 1. No acute cardiopulmonary findings. Stable compared to prior dated 10/25/16. Dwaine Hubbard MD PE at Discharge GENERAL APPEARANCE: This is an anxious female patient who appears well-groomed. SKIN: No rashes. Cool and dry. CARDIOVASCULAR: Regular rate and rhythm without murmurs, gallops, or rubs. RESPIRATORY: Expiratory wheezing auscultated throughout lung nguyen. Breath sounds equal bilaterally. GASTROINTESTINAL: Abdomen soft, non-tender, nondistended. No guarding. MUSCULOSKELETAL: Extremities without clubbing, cyanosis, or edema. No calf tenderness. NEUROLOGICAL: Awake and alert. Motor and sensory grossly within normal limits. Normal speech. Hospital Course Mrs. Aguilar is a 47-year-old female with a history of COPD, pulmonary fibrosis, anxiety, congestive heart failure, and atrial septal defect status post repair at age 21 who presented to the emergency room complaining of severe shortness of breath and wheezing for the past few days. She was found to have COPD exacerbation in the emergency room and was admitted to the hospitalist service for continued observation and medical management. COPD exacerbation -Albuterol 2.5 mg every 2 hours as needed shortness of breath and duo nebulizers 4 times daily scheduled -Resume home Symbicort -Supplemental oxygen titrated to maintain oxygen saturation greater than 92% -Patient uses 2 L nasal cannula at night for history of nocturnal hypoxia -will order to continue at least 2 L at night -Patient is requesting PFT - I have advised that this is typically an outpatient procedure -Hold home prednisone and give Solu-Medrol 40 mg IV every 6 hours -Antibiotics: Azithromycin 500 mg daily and ceftriaxone 1 g daily IV -Monitor her pulse oximetry -negative testing for flu a and b Congestive heart failure, history of -Continue home Maxide, Lasix, and digoxin -BNP was 47 and chest x-ray showed no acute cardiopulmonary findings -Patient reports EF of 40% about 6 years ago but does not follow with a local certified peer specialist as she feels she was only able to improve after no longer seeing a certified peer specialist and following with her primary care physician -Continuous cardiac telemetry to monitor for arrhythmia Anxiety -Patient acutely anxious at the time of my visit -Ativan 0.5 mg IV 1 dose ordered as patient is also nauseated -Reglan also ordered for patient for nausea as this is work for her in the past -Restart home Xanax 0.5 mg 3 times daily as needed anxiety Leukocytosis likely secondary to chronic steroid use - WBC 13.8 on admission - recheck CBC in a.m. - follow results DVT prophylaxis -Heparin 5000 units subq q8h Discussed Condition With patient, nurse Improved. Discharged home in stable condition to follow-up with PCP and consultants. Patient says she has an appointment tomorrow with pulmonology. Says she has medications at home. Patient wants to go home. Pt Condition on Discharge: Stable Discharge Disposition: Discharge Home Discharge Time: > 30 minutes Discharge Instructions DIET: Follow Instructions for: Heart Healthy Diet Activities you can perform: Regular-No Restrictions Follow up Referrals: PCP Follow-up - 2-3 Days Pulmonology - 1 Week New Medications: Ipratropium HFA 12.9 GM Inh (Atrovent HFA 12.9 GM Inh) 17 Mcg/Actuation Aer 2 PUFF INH Q6HR PRN for SHORTNESS OF BREATH, #1 INHALER 0 Refills Continued Medications: Albuterol Neb (Albuterol Neb) 2.5 Mg/0.5 Ml Neb 2.5 MG NEB TID NEB PRN for SHORTNESS OF BREATH, #90 NEBULE 0 Refills Note: The Albuterol Sulfate Inhalation Solution is concentrated and must be diluted. Read complete instructions carefully before using. Alprazolam (Xanax) 0.5 Mg Tab 0.5 MG PO TID PRN for ANXIETY, TAB 0 Refills Budesonide-Formoterol Inh (Symbicort Inh) 80-4.5 Mcg/Act Aero 2 PUFF INH Q12HR for Asthma Management, #1 INHALER 0 Refills Bumetanide (Bumetanide) 1 Mg Tab 1 MG PO DAILY, #30 TAB 0 Refills Digoxin (Digoxin) 0.25 Mg Tab 0.25 MG PO DAILY for Regulate Heart Beat, #30 TAB 0 Refills Fluticasone-Salmeterol Inh (Advair Diskus Inh) 100-50 Mcg/Blist Aer 1 PUFF INH BID for Asthma Management, #1 INHALER 0 Refills Rinse mouth after use. Furosemide (Lasix) 40 Mg Tab 40 MG PO DAILY, #30 TAB 0 Refills Hydrochlorothiazide (Hydrochlorothiazide) 25 Mg Tab 25 MG PO DAILY, #30 TAB 0 Refills Potassium Chloride ER (Potassium Chloride ER) 10 Meq Cap 10 MEQ PO BID for Electrolyte Replacement, #14 CAP 0 Refills Prednisone (Prednisone) 20 Mg Tab 20 MG PO TID, TAB 0 Refills Monica Gunter MD Nov 16, 2017 11:22
[2017-11-16] MEDS ORDERED: IPRA17I INH (11:29)
[2017-11-16 11:35] VITALS: BP 146/78; PULSE 101; RESP 16; TEMP 98.6; O2SAT 97
[2017-11-16] MEDS ORDERED: methylPREDNISolone SOD SUCC 40 MG/1 ML VIAL IV PUSH SCH (14:00)
--- NOTE | 2017-11-16 15:54 | EKG ---
Date Performed: 11/15/2017 Time Performed: 17:07:57 PTAGE: 47 years EKG: Sinus rhythm NORMAL ECG PREVIOUS TRACING : 10/25/2016 21.55 No significant change from previous tracing noted. DOCTOR: Luis Miguel Zarco Interpretating Date/Time 11/16/2017 15:53:20
== END 2017-11-16 13:40 | disposition home or self-care (01) ==
LOC: NED 16:15 → NEDA 18:55 → INTOOBSV 18:55 → NEPFCDU 21:10
PROVIDERS: ADMIT Hospitalist; ATTEND Hospitalist
DX: J44.1 Chronic obstructive pulmonary disease with (acute) exacerbation (principal); I50.9 Heart failure, unspecified; J84.10 Pulmonary fibrosis, unspecified; R09.02 Hypoxemia; D72.829 Elevated white blood cell count, unspecified; R11.0 Nausea; F41.9 Anxiety disorder, unspecified; Z99.81 Dependence on supplemental oxygen; Z79.52 Long term (current) use of systemic steroids; Z87.74 Personal history of (corrected) congenital malformations of heart and circulatory system
CPT/HCPCS: 71046; 80053; 83880; 85025; 85610; 85730; 87804; 93005; 94640; 94664; 96365; 96375; 96376; 99285; G0378; J0456; J0696; J2060; J2765; J2920; J2930; J7050